=== PATIENT | male | born 1980 | race Caucasian/White ===

== ENCOUNTER 2019-01-17 13:33 | Emergency (ER) | payer BC ==
[~2019-01-17] VITALS: Ht 182.9 cm; Wt 96.2 kg
[~2019-01-17 13:33] MED LIST: DIAZEPAM 5 MG5 MG PO; PHENADOZ25 MG PO; TRIAMTERENE-HC1 EAC1 PO; VERTICALM25 MG PO
[2019-01-17 13:59] LABS: URINE BILIRUBIN NEGATIVE (Negative); URINE BLOOD 3+ (Negative); URINE CLARITY CLEAR; URINE COLOR YELLOW; URINE GLUCOSE-RANDOM* NEGATIVE (Negative); URINE KETONES NEGATIVE (Negative); URINE LEUKOCYTES-REFLEX NEGATIVE (Negative); URINE NITRITE-REFLEX NEGATIVE (Negative); URINE PROTEIN (DIPSTICK) TRACE (Negative); URINE SPECIFIC GRAVITY 1.025 (1.005-1.035); URINE UROBILINOGEN 0.2 E.U./dl (0.2-1.0)
[2019-01-17 14:21] LABS: HYALINE CASTS 0-3 Few /LPF (None Seen); SQUAMOUS 0-3 Few /LPF (0-3)
[2019-01-17 14:22] LABS: URINE WBC-REFLEX 0-5 Rare /HPF (0-5)
[2019-01-17 14:23] LABS: BACTERIA-REFLEX None Seen /HPF (None Seen); CRYSTALS None Seen /LPF (None Seen)
[2019-01-17] MEDS ORDERED: NORCO 5-325 TA1 EAC1 PO (14:49)
[2019-01-17] MEDS ORDERED: FLOMAX0.4 MG PO (14:49)
[2019-01-17] MEDS ORDERED: ZOFRAN ODT4 MG PO (14:49)
[2019-01-17 14:50] LABS: BASOPHILS 0.5 % (0.0-2.0); EOSINOPHILS 0.4 % (0.0-3.0); HEMATOCRIT 48.3 % (42.0-52.0); HEMOGLOBIN 17.1 gm/dL (14.0-18.0); LYMPHOCYTES 24.7 % (24.0-44.0); MCH 31.5 pg (26.0-34.0); MCHC 35.4 g/dL (28.0-37.0); MONOCYTES 9.2 % (1.0-8.0); PLATELET COUNT 243 thou/uL (150-400); POLYS 65.2 % (36.0-66.0); RBC 5.42 mil/uL (4.50-6.00); RDW 13.1 % (10.5-14.5); WBC 9.2 thou/uL (4.0-11.0)
[2019-01-17 14:52] LABS: CALCIUM 9.3 mg/dL (8.5-10.1); CREATININE 1.4 mg/dL (0.7-1.3); POTASSIUM 3.7 mmol/L (3.5-5.1)
[2019-01-17 14:58] LABS: ALBUMIN 4.5 g/dL (3.4-5.0); TOTAL BILIRUBIN 1.3 mg/dL (<0.1-1.0); TOTAL PROTEIN 7.6 g/dL (6.4-8.2)
[2019-01-17 15:31] VITALS: BP 132/69
== END 2019-01-17 16:01 | disposition home or self-care (01) ==
LOC: ER 13:33
PROVIDERS: Nurse Practitioner Family
DX: N20.0 Calculus of kidney (principal)